=== PATIENT | female | born 1955 | race African-American/Black ===

== ENCOUNTER 2016-08-28 10:03 | Emergency (ER) | payer MEDICAID, OTHER ==
[~2016-08-28] VITALS: Ht 170.2 cm; Wt 119.2 kg
[~2016-08-28 10:03] MED LIST: BISM525O5; FURO-152; IBUP-1510; NAPR500T2; POTA10TA69; PROT40; SIMV20TA6
[2016-08-28] MEDS ORDERED: IBUPROFEN 800MG TABLET PO ONE (10:45)
[2016-08-28 13:26] VITALS: BP 121/77
== END 2016-08-28 13:25 | disposition home or self-care (01) ==
LOC: ER 11:00
DX: R10.2 Pelvic and perineal pain (principal); M54.5 Low back pain; E11.9 Type 2 diabetes mellitus without complications; E78.00 Pure hypercholesterolemia, unspecified; R39.15 Urgency of urination; Z88.0 Allergy status to penicillin; Z88.5 Allergy status to narcotic agent; Z88.8 Allergy status to other drugs, medicaments and biological substances; Z90.710 Acquired absence of both cervix and uterus
CPT/HCPCS: 76770; 76830; 76856; 99284; Z7610